=== PATIENT | female | born 1940 | race Caucasian/White ===

== ENCOUNTER 2016-07-11 16:28 | Observation (INO) ==
--- NOTE | 2016-07-11 13:14 | EKG Report ---
Test Performed on : 07/11/2016 1:04:07 PM Test Reason : CHEST PAIN Blood Pressure : / mmHG Vent. Rate : 089 BPM Atrial Rate : 062 BPM P-R Int : 000 ms QRS Dur : 084 ms QT Int : 358 ms P-R-T Axes : 000 -08 068 degrees QTc Int : 435 ms Atrial fibrillation. Abnormal ECG No previous ECGs available Unconfirmed Result
--- NOTE | 2016-07-11 13:25 | Diag Imaging Result Doc PS360 ---
EXAM: CHEST-2 VIEWS HISTORY: CP TECHNIQUE: Two views COMPARISON: None. FINDINGS: The lungs are well expanded. The heart is not enlarged. The vessels are not distended. There are no infiltrates. No pleural effusions. Old injury to the posterior right fifth rib. Sutures in the right base. IMPRESSION: No acute abnormality. Electronically signed by Marvin Mcbride 07/11/2016 1:23 PM
[2016-07-11 13:57] LABS: MANUAL DIFF NEEDED? NO
[2016-07-11 13:59] LABS: BASO% 0.3 % (0.0-0.8); EOS% 0.9 % (0.0-10.0); HEMATOCRIT 42.5 % (37.0-47.0); HEMOGLOBIN 14.1 g/dL (12.0-16.0); IMM GRAN# 0.04 X1000 (0.0-0.04); IMM GRAN% 0.4 % (0.0-0.5); LYMPH# 2.34 X1000 (1.2-3.4); LYMPH% 21.7 % (20.5-51.1); MCH 29.1 PG (27-31); MCHC 33.2 g/dL (33-37); MCV 87.8 FL (81-99); MONO# 1.04 X1000 (0.11-0.59); MONO% 9.7 % (1.7-9.3); MPV 10.8 FL (7.4-10.4); PLT 208 X1000 (130-400); RBC 4.84 XMIL (4.2-5.4)
[2016-07-11 14:14] LABS: INR 0.95 (0.86-1.15)
[2016-07-11 14:15] LABS: PTT PL 31.6 Seconds (22.6-43.9)
[2016-07-11 14:19] LABS: AGAP 18; ALBUMIN 4.1 g/dL (3.5-5.0); ALKALINE PHOSPHATASE 174 U/L (32-104); BUN 21 mg/dL (8-22); CALCIUM 9.6 mg/dL (8.8-10.2); CHLORIDE 94 mmol/L (98-107); CK PROFILE 26 U/L (24-173); COSMO 273; GOT 641 U/L (10-30); GPT 376 U/L (10-36); MAGNESIUM 1.9 mg/dL (1.5-2.7); SODIUM 131 mmol/L (136-145); TCO2 19 mmol/L (25-35); TOTAL PROTEIN 6.5 g/dL (6.3-8.3)
--- NOTE | 2016-07-11 15:43 | PROVIDER DOCUMENTATION ---
This chart was entered by Dede Ortega Scribe, acting as scribe for Rafy Butts MD. HPI-Chest Pain - General Chief Complaint: Chest Pain Stated Complaint: CHEST PAIN Time Seen by Provider: 07/11/16 13:16 Source: patient, family Allergies/Adverse Reactions: Patient Allergies Allergy/AdvReac Type Severity Reaction Status Date / Time morphine Allergy Mild Unknown Verified 07/11/16 13:02 steroid AdvReac Mild Unknown Uncoded 07/11/16 13:02 Home Medications: Home Medication List Medication Instructions Recorded Confirmed Last Taken Type Alprazolam [Xanax] 1 mg PO DAILY 03/29/13 07/11/16 03/28/13 History Amlodipine [Norvasc] 5 mg PO DAILY 03/29/13 07/11/16 03/28/13 History Donepezil [Aricept] 10 mg PO DAILY 03/29/13 07/11/16 03/28/13 History Metformin [Glucophage] 500 mg PO BID CC 03/29/13 07/11/16 03/28/13 History Propranolol [Inderal] 20 mg PO DAILY 03/29/13 07/11/16 03/28/13 History Amitriptyline [Elavil] 101 mg PO HS 07/11/16 07/11/16 Unknown History FOSINOpril [Monopril] 20 mg PO DAILY 07/11/16 07/11/16 Unknown History - History of Present Illness-CP Nature of Presenting Problem: PT IS A 76YOF PRESENTING TO THE ED C/O CP. PT AND PT FAMILY STATES THAT SHE HAS HAD CP INTERMITTENTLY FOR THE PAST HOUR WITH MINOR SOB BUT DENIES N/V/D, OR DIAPHORESIS AT THIS TIME. PT DOES REPORT N/V/D YESTERDAY. CP STARTS IN CENTER OF CHEST AND RADIATES UP BEHIND EARS. NO OTHER COMPLAINTS AT THIS TIME. Location: reports: central Chest Pain Radiation: reports: neck, other (BEHIND EARS) Quality of Pain: reports: aching, fullness Severity in ED: mild Onset/Duration: 1-3 hours ago Timing: still present Context/Activities at Onset: reports: light activity Modifying Factors: improves with: nothing Associated Symptoms: denies: abdominal pain, back pain, diaphoresis, fatigue, nausea, shortness of breath, vomiting Nitro Today/Relief: no nitro taken today Aspirin Treatment Today: no aspirin today Prior Chest Pain/Cardiac Workup: reports: other (PREVIOUS ROUTINE WORK UP WITH NO ABNORMAL FINDINGS) Similar Symptoms Previously?: No Recently Seen Here or By Another Healthcare Provider: No Review of Systems - Adult - REVIEW OF SYSTEMS - ADULT Constitutional: reports: no symptoms reported Eyes: reports: no symptoms reported Ears, Nose, Mouth & Throat: reports: no symptoms reported Cardiovascular: reports: see HPI, chest pain, irregular heart rate, palpitations . denies: syncope Respiratory: reports: no symptoms reported Gastrointestinal: reports: no symptoms reported Genitourinary: reports: no symptoms reported Musculoskeletal: reports: no symptoms reported Integumentary: reports: no symptoms reported Neurological: reports: no symptoms reported Psychiatric: reports: no symptoms reported Endocrine: reports: no symptoms reported Hematologic/Lymphatic: reports: no symptoms reported Allergic/Immunologic: reports: no symptoms reported All Other Systems: Reviewed and Negative Past History - Adult - PAST MEDICAL HISTORY-ADULT Review of Records: reports: Old Records Reviewed, Nursing Assessment Review, Medications Reviewed, Social history reviewed & non-contributory. Major Childhood Illnesses: reports: denies history Cardiovascular: reports: HTN Respiratory: reports: denies history Gastrointestinal: reports: denies history Obstetrical/Gynecological: reports: denies history Genitourinary: reports: denies history Musculoskeletal: reports: denies history Neurological: reports: dementia Endocrine/Immune: reports: Diabetes, anemia Other Conditions: reports: denies history - PRIOR SURGERIES/PROCEDURES Surgical/Procedure History: reports: hysterectomy, other (right ankle) - IMMUNIZATION STATUS Childhood Immunizations: See Nurse Assessment Flu Vaccine: See Nurse Assessment - FAMILY HISTORY Family History: reviewed, not pertinent - SOCIAL HISTORY Smoking: denies, non-smoker Substance Use: none/never, denies Alcohol Use Frequency: never Living Situation: family Physical Exam-General - PHYSICAL EXAM-ADULT Initial Vital Signs Reviewed: Yes - CONSTITUTIONAL General Appearance: appears well, alert, no apparent distress - EYES Eyes: PERRL/EOMI, pink conjunctivae - HEAD, EARS, NOSE, MOUTH & THROAT HENMT: normocephalic/atraumatic, moist mucous membranes, normal ENT inspection, pharynx normal - NECK Neck: non-tender, full range of motion, supple - RESPIRATORY Respiratory: lungs clear, normal breath sounds, no respiratory distress - CARDIOVASCULAR Cardiovascular: regular rate, rhythm, no murmur - GASTROINTESTINAL (ABDOMEN) Abdominal Exam: non tender, soft - MUSCULOSKELETAL Back Exam: no CVA tenderness, no vertebral tenderness Extremity: normal range of motion, non-tender, normal inspection, no pedal edema - SKIN Integumentary: normal color, normal turgor, warm/dry - NEUROLOGIC 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, grossly normal, no motor/sensory deficits - PSYCHIATRIC Psych/Mental Status: normal mood/affect, normal thought content, normal thought process, oriented x 3 Progress - PLAN OF CARE/RESULTS Progress/Plan/Lab Results: Vital Signs - 8 hr 07/11/16 12:56 Temperature 98 F Pulse Rate 86 Respiratory Rate 18 Blood Pressure 143/60 O2 Sat by Pulse Oximetry 97 Laboratory Results - last 24 hr 07/11/16 07/11/16 07/11/16 13:55 13:55 13:55 WBC RBC Hgb Hct MCV MCH MCHC RDW Std Deviation Plt Count MPV Immature Gran % (Auto) Neut % (Auto) Lymph % (Auto) [place] % (Auto) Eos % (Auto) Baso % (Auto) Immature Gran # (Auto) Neut # (Auto) Lymph # (Auto) [place] # (Auto) Eos # (Auto) Baso # (Auto) PT INR APTT (Factor Assay) D-Dimer Sodium 131 L Potassium 4.0 Chloride 94 L Carbon Dioxide 19 L Anion Gap 18 BUN 21 Creatinine 0.8 Estimated GFR/1.73 m2 > 60 BUN/Creatinine Ratio 26 Glucose 234 H Calculated Osmolality 273 Calcium 9.6 Magnesium 1.9 Total Bilirubin 2.50 H AST 641 H ALT 376 H Alkaline Phosphatase 174 H Creatine Kinase 26 Troponin T < 0.010 Rpm-[id number] Pept 136 Total Protein 6.5 Albumin 4.1 Globulin 2.0 Albumin/Globulin Ratio 2.0 07/11/16 07/11/16 07/11/16 13:55 13:55 13:55 WBC 10.77 RBC 4.84 Hgb 14.1 Hct 42.5 MCV 87.8 MCH 29.1 MCHC 33.2 RDW Std Deviation 13.2 Plt Count 208 MPV 10.8 H Immature Gran % (Auto) 0.4 Neut % (Auto) 67.0 Lymph % (Auto) 21.7 [place] % (Auto) 9.7 H Eos % (Auto) 0.9 Baso % (Auto) 0.3 Immature Gran # (Auto) 0.04 Neut # (Auto) 7.22 H Lymph # (Auto) 2.34 [place] # (Auto) 1.04 H Eos # (Auto) 0.10 Baso # (Auto) 0.03 PT 13.0 INR 0.95 APTT (Factor Assay) 31.6 D-Dimer 0.42 Sodium Potassium Chloride Carbon Dioxide Anion Gap BUN Creatinine Estimated GFR/1.73 m2 BUN/Creatinine Ratio Glucose Calculated Osmolality Calcium Magnesium 1.8 Total Bilirubin AST ALT Alkaline Phosphatase Creatine Kinase Troponin T Pie-Q-Coyjxpolika Pept Total Protein Albumin Globulin Albumin/Globulin Ratio Orders Category Date Time Status Cardiac Monitoring DIRECTED Care 07/11/16 13:03 Active Oxygen Therapy- ED Nursing DIRECTED Care 07/11/16 13:03 Active Resuscitation Status Routine Care 07/11/16 15:30 Ordered Saline Loc NOW Care 07/11/16 13:03 Active CHEST-2 VIEWS [RAD] Stat Exams 07/11/16 13:03 Completed CBC WITH ELECTRONIC DIFF [HEME] Stat Lab 07/11/16 13:55 Completed CK PROFILE [SP CHEM] Stat Lab 07/11/16 13:55 Completed COMPREHENSIVE METABOLIC PANEL [CHEM] Stat Lab 07/11/16 13:[address] D-D[address]ER [address] [COAG] Stat Lab 07/11/16 13:55 Completed MAGNESIUM [CHEM] Stat Lab 07/11/16 13:55 Completed MAGNESIUM [CHEM] Stat Lab 07/11/16 13:55 Completed PRO B-NATRIURETIC PEPTIDE Stat Lab 07/11/16 13:55 Completed PR[address]IME WITH INR PL [COAG] Stat Lab 07/11/16 13:[address] [COAG] Stat Lab 07/11/16 13:55 Completed TROPONIN T Stat Lab 07/11/16 13:55 Completed Aspirin Med 07/11/16 13:03 Discontinued 325 mg PO STAT STA Enoxaparin 1 mg/kg [Lovenox 1 mg/kg] Med 07/11/16 13:38 Discontinued 1 each SUBQ NOW ONE Enoxaparin [Lovenox] Med 07/11/16 13:45 Discontinued 80 mg .ROUTE .STK-MED ONE Hydromorphone [Dilaudid] Med 07/11/16 13:42 Discontinued 0.5 mg IV NOW ONE EKG [EKG] Stat Ther 07/11/16 13:03 Draft Transfer/Admit Order [TRANSFER] Routine Transfer 07/11/16 15:10 Ordered Result Diagrams: 07/11/16 13:55 07/11/16 13:55 - XRAY 1 XRAY: Bilateral XRAY Study: Chest (NAD) - CONSULTS/PCP/HOSPITALIST Notification #1 *Consult/PCP/Hospitalist*: MYKE Time Discussed: 15:11 Reason/Comments: MYKE AGREED TO ADMIT TO HIS SERVICE Consult Disposition: Admit Departure - Departure Time of Disposition Decision: 13:46 DIAGNOSIS: Chest pain at rest, New onset atrial fibrillation Disposition: ADMITTED INPATIENT 09 Certified Medical Emergency: Emergent Condition: Good Referrals and Follow-Ups: Cornell Simmons MD [Primary Care Provider] - - Critical Care Note This patient required my direct & personal management of CC.: No This chart was documented by the indicated scribe, (Dede Ortega Scribe) and accurately reflects the services I performed and decisions made by me, Rafy Butts MD, as attested by the provider's signature.
[~2016-07-11 16:28] MED LIST: ASPIRIN PO STA; DILAUDID IV ONE; LOVENOX 1 MG/KG SUBQ ONE; LOVENOX ONE; NITROGLYCERIN TOP ONE
[2016-07-11] MEDS ORDERED: ZOFRAN IV PRN (16:51)
[2016-07-11] MEDS ORDERED: DILAUDID IV PRN (16:51)
[2016-07-11] MEDS: LOVENOX SUBQ SCH (20:53)
[2016-07-11] MEDS: NITROGLYCERIN TOP SCH (20:53)
[2016-07-11] MEDS ORDERED: XANAX PO SCH (21:00)
[2016-07-11] MEDS ORDERED: SEROQUEL PO SCH (21:00)
[2016-07-11] MEDS ORDERED: ELAVIL PO SCH (21:00)
--- NOTE | 2016-07-11 22:02 | EKG Report ---
Test Performed on : 07/11/2016 9:17:19 PM Test Reason : afib Blood Pressure : / mmHG Vent. Rate : 068 BPM Atrial Rate : 068 BPM P-R Int : 200 ms QRS Dur : 088 ms QT Int : 404 ms P-R-T Axes : 043 -08 065 degrees QTc Int : 429 ms Normal sinus rhythm. with sinus arrhythmia. Nonspecific T wave abnormality Abnormal ECG When compared with ECG of 11-JUL-2016 13:04, Sinus rhythm. has replaced Atrial fibrillation. Nonspecific T wave abnormality, worse in Anterolateral leads Confirmed by Kenny Cardoso MD ([id number]) on 07/24/2016 10:07:29 PM
[2016-07-12] MEDS: NITROGLYCERIN TOP SCH ×2 (02:14→10:30)
[2016-07-12 05:59] LABS: HEMATOCRIT 39.5 % (37.0-47.0); HEMOGLOBIN 12.8 g/dL (12.0-16.0); MCHC 32.4 g/dL (33-37); MCV 89.6 FL (81-99); MPV 11.1 FL (7.4-10.4); RBC 4.41 XMIL (4.2-5.4)
[2016-07-12 06:27] LABS: ALBUMIN 3.6 g/dL (3.5-5.0); CALCIUM 9.1 mg/dL (8.8-10.2); POTASSIUM 3.7 mmol/L (3.5-5.1); TOTAL BILIRUBIN 1.9 mg/dL (0.20-1.00); TOTAL PROTEIN 6.4 g/dL (6.3-8.3)
[2016-07-12] MEDS ORDERED: GLUCOPHAGE PO SCH (08:00)
--- NOTE | 2016-07-12 08:21 | PROGRESS NOTE ---
DATE: 07/12/2016 SUBJECTIVE: Patient notes her chest pain is better. States she is feeling better. She is asking to go home. She is ambulating to the bathroom without any difficulty. Denies any other symptoms at this point. Denies any current chest pain. Denies any palpitations. Notes that her nausea is better. Denies any right upper quadrant pain. Denies any GI or issues. PHYSICAL: Vital Signs: Temperature 98, pulse 72, respiratory rate 18, BP 128/39. General: Patient is awake, alert. She is in no distress. She is ambulating in the boyer. Ambulating the to the restroom without any difficulty. Neck: Supple. CV: Regular rate. Chest: Clear, nonlabored. Abdomen: Soft. No hepatosplenomegaly. Nontender. No masses, no guarding, no rebound. Extremities: Moves all extremities. Neurologic: No changes. LABS: CBC normal. Glucose 173. Total bilirubin 1.9. AST 384, ALT 434. Alkaline phosphatase 181. Hepatitis profile pending. ASSESSMENT: 1. Atrial fibrillation. Resolved. Currently back in sinus rhythm. 2. Chest pain resolved. 3. Nausea vomiting resolved. 4. Abdominal pain. 5. Acute hepatitis of undetermined significance. Her AST, ALT and total bilirubin all are elevated. Her total bilirubin has decreased from 2.5-1.9. Ultrasound of abdomen is pending as is his hepatitis profile. PLAN: Hopefully we can discharge patient home soon. She states she is feeling better. She is having no nausea vomiting. Uncertain etiology of her acute hepatitis as noted, ultrasound and hepatitis profile pending. If the ultrasound is normal, we certainly can discharge her home to follow up outpatient regarding her elevation in her liver functions. cc: Stephon Canseco MD
[2016-07-12] MEDS ORDERED: INDERAL PO SCH (09:00)
[2016-07-12] MEDS ORDERED: ARICEPT PO SCH (09:00)
[2016-07-12] MEDS ORDERED: NORVASC PO SCH (09:00)
[2016-07-12] MEDS ORDERED: ASPIRIN PO SCH (09:00)
[2016-07-12] MEDS ORDERED: MONOPRIL PO SCH (09:00)
[2016-07-12] MEDS: LOVENOX SUBQ SCH (10:31)
[2016-07-12 11:10] VITALS: BP 145/57
--- NOTE | 2016-07-12 11:56 | Diag Imaging Result Doc PS360 ---
EXAM: US ABDOMEN-COMPLETE - 07/12/2016 HISTORY: lft's TECHNIQUE: Ultrasound abdomen COMPARISON: None. FINDINGS: The gallbladder is surgically absent. The common bile duct is mildly distended at 9 mm, which likely relates to the postcholecystectomy state. The liver appears diffusely hyperechoic suggesting fatty infiltration. There is no focal liver lesion identified. Doppler imaging shows hepatopedal flow in the portal vein there are no abnormalities of the spleen or visualized portions of the pancreas identified. There is no ascites seen. There are no abnormalities of the bilateral kidneys identified. Abdominal aorta and IVC appear normal caliber. IMPRESSION: Status post cholecystectomy. Mildly distended common bile duct which likely relates to the postcholecystectomy state. Apparent fatty infiltration of liver. No evidence of focal liver lesion. Electronically signed by Richard Zepeda 07/12/2016 11:53 AM
--- NOTE | 2016-07-12 16:38 | HISTORY AND PHYSICAL ---
PRIMARY CARE PHYSICIAN: Dr. Simmons. CHIEF COMPLAINT: Chest pain. HISTORY OF PRESENT ILLNESS: This is a 76-year-old female who presented to the emergency room complaining of intermittent chest pain and some shortness of breath over the hour prior to coming to the emergency room, and was found to be in atrial fibrillation. She reportedly was in atrial fibrillation with a controlled rate and spontaneously converted to sinus rhythm. She has had no further chest pain or shortness of breath. She did have some nausea, without vomiting, although she states this has resolved. She denied any right upper quadrant pain, previous history of nausea and vomiting, diarrhea or constipation. She was noted to have elevated LFTs with a total bilirubin of 2.5, an AST of 641, ALT of 376, and alkaline phosphatase of 174. She is being admitted for further evaluation and treatment. PAST MEDICAL HISTORY: Diabetes mellitus, type 2. Charcot joint of the right foot. Vascular dementia. 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 Hypertension. PAST SURGICAL HISTORY: Hysterectomy, cholecystectomy, right ankle surgery, and hemorrhoidectomy. SOCIAL HISTORY: She denies alcohol, tobacco, or illicit drug use. ALLERGIES: Morphine, which causes an unknown reaction, and steroids, which causes an unknown reaction. HOME MEDICATIONS: Xanax 1 mg at bedtime. Hydroxyzine 25 at bedtime. Elavil at bedtime. Monopril 20 daily. Inderal 20 mg daily. Glucophage 500 b.i.d. Aricept 10 daily. Norvasc 5 daily. REVIEW OF SYSTEMS: A 14-point review of systems is discussed with the patient, with pertinent positives stated in HPI. She denied palpitations, dizziness, syncope, vomiting, diarrhea, constipation, cough, fever, chills, PND, orthopnea, black or bloody vomitus, black or bloody stools, hematuria, dysuria, frequency, or urgency. PHYSICAL EXAMINATION: GENERAL: This is a 76-year-old female who is sitting in the bed in no distress. VITAL SIGNS: Blood pressure is 109/42 with a heart rate of 82. Respirations are 18. Temperature is 98.2 degrees oral with room air saturations of 97%. CARDIOVASCULAR: Regular rate and rhythm. S1 and S2 appreciated. PULMONARY: Breath sounds are clear. No increased work of breathing noted. GASTROINTESTINAL: Soft, nontender, nondistended. Bowel sounds in all 4 quadrants. BACK: No CVAT. No spine tenderness. MUSCULOSKELETAL: Good range of motion of joints. NEUROLOGIC: She is alert and oriented x3. EXTREMITIES: No clubbing, cyanosis, or edema. Calves are nontender. Pulses are palpable x4. ASSESSMENT: 1. Atrial fibrillation, resolved. She is back in sinus rhythm. 2. Chest pain. This resolved. 3. Nausea, resolved. 4. Abdominal pain, resolved. 5. Acute hepatitis of undetermined significance. We will give IV hydration. We will trend laboratories. Obtain an abdominal ultrasound. Further treatments pending hospital course. Dictated by ALETA Marrero for Stephon Canseco MD cc: ALETA Marrero MD
--- NOTE | 2016-07-12 17:37 | ECHO REPORT ---
ORDER DATE: 07/11/2016 ECHOCARDIOGRAM: MEASUREMENTS: Left ventricular end-diastolic diameter 3.3, end systolic diameter 2.0, posterior wall thickness 1.7, septal thickness 1.4, left atrium 3.5, aortic root 3.5. SUMMARY: 1. Fair quality study. 2. Mild aortic valve sclerosis demonstrated with adequate aortic valve opening evident. Peak instantaneous gradient across aortic valve is 10-15 mmHg with a mean gradient 7 mmHg. There is mild aortic regurgitation. Mild thickening of mitral valve leaflets demonstrated with normal mitral valve opening. There is trace mitral regurgitation. Tricuspid valve and pulmonic valves are without structural abnormality with mild tricuspid regurgitation. The estimated systolic PA pressure by Doppler is 25-30 mmHg. Aortic root is normal size. 3. Normal left ventricular chamber size with moderate concentric left hypertrophy is demonstrated. Estimated left ventricular ejection fraction appears to be greater than 70% with left ventricle appearing hyperdynamic. Doppler suggests grade 1 left ventricular diastolic dysfunction. Left atrium, right atrium, and right ventricle are normal size with normal right ventricular systolic function. 4. No pericardial effusion. 5. Appearance of inferior vena cava suggests normal central venous pressure. CONCLUSION: 1. Aortic valve sclerosis without stenosis with mild aortic regurgitation. 2. Mild tricuspid regurgitation with estimated systolic PA pressure of 25-30 mmHg. 3. Moderate concentric left hypertrophy with left ventricle appearing hyperdynamic with estimated ejection fraction greater than 70%. 4. Grade 1 left ventricular diastolic dysfunction. cc: Adin Hammond MD
--- NOTE | 2016-07-13 15:41 | DISCHARGE SUMMARY ---
ADMISSION DATE: 07/11/2016 DISCHARGE DATE: 07/12/2016 DIAGNOSES: 1. Atrial fibrillation, resolved. 2. Chest pain, resolved. 3. Nausea and vomiting, resolved. 4. Abdominal pain, resolved. 5. Acute hepatitis of undetermined significance. DIAGNOSTICS: Abdominal ultrasound status post cholecystectomy, mild distention of the common bile duct which likely related to post cholecystectomy state. HOSPITAL COURSE: Ms. Dewey presented to the emergency room having 1 hour of chest pain with some shortness of breath. She was found to be in a controlled rate atrial fibrillation on arrival, which she did convert spontaneously to a sinus rhythm, and her chest pain and shortness of breath resolved. Cardiac enzymes have been negative on multiple occasions. She also was noted to have some elevated LFTs which she states this is new. We trended labs, they are starting to decrease somewhat. Abdominal ultrasound performed which is essentially negative. She has had no further nausea or abdominal pain. She did tolerate a diabetic diet with no difficulty. PHYSICAL EXAMINATION: Cardiovascular: Regular rate and rhythm. S1, S2 appreciated. Pulmonary: Breath sounds are clear. No increased work of breathing noted. Gastrointestinal: Abdomen is soft, nontender, nondistended. Bowel sounds in all 4 quadrants. Extremities: No clubbing, cyanosis, or edema. Pulses are palpable x4. Calves are nontender. Discharge Vital Signs: Blood pressure is 145/57, with a heart rate of 87, respirations are 18, temperature is 97.7 degrees, with a room air saturations of 97%. DISCHARGE ACTIVITY: As tolerated. FOLLOWUP: She is to follow up with Dr. Simmons on Friday. At that time, he will re-evaluate labs on Friday, July 15, at 1:30. DISPOSITION: She is being discharged home in stable condition with family members. DISCHARGE MEDICATIONS: Xanax 1 mg at bedtime, hydroxyzine 25 mg at bedtime, Elavil 100 p.o. at bedtime, Monopril 20 daily, Inderal 20 daily, Glucophage 500 b.i.d., Aricept 10 daily, Norvasc 5 daily. Dictated by ALETA Marrero for Stephon Canseco MD cc: ALETA Marrero MD
== END 2016-07-12 15:05 | disposition home or self-care (01) ==
LOC: OBSVTOIN 16:28 → P.MEDSURG 16:28 → P.ED 16:28 → P.MEDSURG 17:11 → P.ED 07-12 15:04 → UNDODISIN 07-12 15:04
PROVIDERS: ADMIT Family Medicine; ATTEND Family Medicine